=== PATIENT | male | born 1940 | race Caucasian/White ===

== ENCOUNTER → 2017-04-13 | Outpatient (CLI) | payer OTHER ==
[~2017-04-13] MED LIST: AMLO10 PO; CENTTAB9 PO; COZA50TA PO; DOCU1CAP39 PO; ENOX30P SQ; FENO200C OR; FISH1000 PO; HYDR-2768 PO; HYDR-3580 PO; LEVO100T75 PO; METO50TA11; PRAV80
--- NOTE | 2017-04-14 11:29 | RSPPFT ---
DATE OF PROCEDURE: 04/13/17 COMMENTS: VOLUMES DYNAMIC: FVC normal; FEV1 mildly reduced. STATIC: FRC, RV and TLC normal. FLOWS: FEV1% moderately reduced; FEF 25-75 severely reduced. DIFFUSION: Unable to complete. FLOW VOLUME LOOP: Pattern of variable intrathoracic airways obstruction. IMPRESSION: Mild to moderate obstructive ventilatory defect with no significant hyperinflation. There is significant improvement post-bronchodilator. Patient was unable to perform the diffusion maneuver.
== END ==
LOC: PHRSP 07:13
PROVIDERS: ATTEND Internal Medicine
DX: J44.9 Chronic obstructive pulmonary disease, unspecified (principal)
CPT/HCPCS: 94060; 94620; 94726; 94729